=== PATIENT | female | born 2000 | race Two or more races ===

== ENCOUNTER 2020-10-16 07:49 | Emergency (ER) | payer MEDICAID ==
[~2020-10-16] VITALS: Ht 165.1 cm; Wt 136.1 kg
[2020-10-16] MEDS ORDERED: diphenhdrAMINE HCL 50 MG/1 ML VL IM ONE (12:00)
[2020-10-16] MEDS ORDERED: EPINEPHrine HCL 1 MG/1 ML AMP SC ONE (12:00)
[2020-10-16 12:06] VITALS: BP 110/65
== END 2020-10-16 12:19 | disposition home or self-care (01) ==
LOC: ER 07:49
DX: T78.40XA Allergy, unspecified, initial encounter (principal); Y92.89 Other specified places as the place of occurrence of the external cause
CPT/HCPCS: 96372; 99284; J0171; J1200

== ENCOUNTER 2020-10-28 11:30 | Emergency (ER) | payer MEDICAID ==
[~2020-10-28] VITALS: Ht 165.1 cm; Wt 136.1 kg
[2020-10-28 12:25] VITALS: BP 124/79
== END 2020-10-28 12:43 | disposition home or self-care (01) ==
LOC: ER 11:30
DX: F31.9 Bipolar disorder, unspecified (principal); F41.9 Anxiety disorder, unspecified; Z76.0 Encounter for issue of repeat prescription

== ENCOUNTER 2020-12-04 10:10 | Emergency (ER) | payer MEDICAID ==
[~2020-12-04] VITALS: Ht 165.1 cm; Wt 136.1 kg
[2020-12-04 12:18] VITALS: BP 128/89
== END 2020-12-04 11:41 | disposition home or self-care (01) ==
LOC: ER 10:10
DX: S56.912A Strain of unspecified muscles, fascia and tendons at forearm level, left arm, initial encounter (principal); S56.911A Strain of unspecified muscles, fascia and tendons at forearm level, right arm, initial encounter; X58.XXXA Exposure to other specified factors, initial encounter; Y93.89 Activity, other specified; Y92.89 Other specified places as the place of occurrence of the external cause; Y99.8 Other external cause status